=== PATIENT | male | born 1965 | race African-American/Black ===

== ENCOUNTER 2021-04-01 13:48 | Emergency (ER) | payer OTHER ==
[~2021-04-01] VITALS: Ht 172.7 cm; Wt 75.0 kg
[2021-04-01 13:50] VITALS: BP 145/84
== END 2021-04-01 15:45 | disposition home or self-care (01) ==
LOC: EMS 14:00
DX: R21 Rash and other nonspecific skin eruption (principal); K59.00 Constipation, unspecified; I10 Essential (primary) hypertension; F17.210 Nicotine dependence, cigarettes, uncomplicated; Z88.1 Allergy status to other antibiotic agents
CPT/HCPCS: 99283; Z7502